=== PATIENT | female | born 1985 | race Caucasian/White ===

== ENCOUNTER → 2017-04-29 | Outpatient (CLI) | payer BC ==
--- NOTE | 2017-04-29 11:05 | RAD ---
Ultrasound of the left breast 04/29/2017 Clinical history: Left breast lump felt at 1:30 position. Technique: A real-time ultrasound examination of the upper outer quadrant of the left breast in the area where the patient feels a palpable abnormality was performed. Multiple images were obtained. Findings: Dense breast parenchyma is seen within the upper outer quadrant of the left breast. No solid or cystic mass is seen by ultrasound. Impression: Negative study.
--- NOTE | 2017-04-29 11:11 | KCIC ---
EXAM: Pelvic sonogram. HISTORY: Pelvic pain. TECHNIQUE: Transabdominal and transvaginal sonographic imaging of the pelvis was performed. COMPARISON: None. FINDINGS: The uterus measures 9.7 x 2.8 x 5.2 cm. The endometrial stripe measures 9.9 mm in thickness. The right ovary measures 2.5 x 1.7 x 2.8 cm. The left ovary measures 2.1 x 1.1 x 1.6 cm. There is a 1.5 cm dominant right ovarian follicle. There is normal blood flow within both ovaries. There is no pelvic free fluid. The bladder is unremarkable. IMPRESSION: 1. 1.5 cm physiologic dominant right ovarian follicle. 2. Otherwise, unremarkable pelvic sonogram. Electronically signed by: Emily Ramey MD (04/29/2017 11:07 AM) [id number]
== END | disposition home or self-care (01) ==
LOC: KCIC US 09:43
PROVIDERS: ATTEND Obstetrics & Gynecology
DX: N63 Unspecified lump in breast (principal); R10.2 Pelvic and perineal pain
CPT/HCPCS: 76641; 76830; 76856